=== PATIENT | male | born 1980 | race Hispanic/Latino ===

== ENCOUNTER 2017-06-26 02:46 | Inpatient (IN) | payer BC ==
[2017-06-26 03:11] VITALS: BMI 33.0
--- NOTE | 2017-06-26 03:21 | ED PDOC ---
Arrival/HPI - General Chief Complaint: Fever Time Seen by Provider: 06/26/17 03:15 Historian: Patient - History of Present Illness Narrative History of Present Illness (Text): 06/26/17 03:19 Praful Frazier is a 36 year old male who presents to the Emergency department complaining of flu-like symptoms since yesterday. Patient states after returning home from the gym yesterday he began experiencing generalized weakness , body aches, occasional cough, and dizziness. Patient states tonight he developed a fever with a max temperature of 103.5F at home. Patient reports he took Dayquil and Mucinex with minimal relief. Patient denies any chest pain, shortness of breath, nausea, vomiting, diarrhea, neck pain, headache, dizziness , or any other complaints. Time/Duration: Other (yesterday) Symptom Onset: Gradual Symptom Course: Unchanged Activities at Onset: Light Context: Home Past Medical History - Provider Review Nursing Documentation Reviewed: Yes - Infectious Disease Hx of Infectious Diseases: None - Past Medical History Past Medical History: No Previous - Psychiatric Hx Depression: No Hx Emotional Abuse: No Hx Physical Abuse: No Hx Substance Use: No - Past Surgical History Past Surgical History: No Previous - Anesthesia Hx Anesthesia: No Hx Anesthesia Reactions: No Hx Malignant Hyperthermia: No - Suicidal Assessment Feels Threatened In Home Enviroment: No Family/Social History - Physician Review Nursing Documentation Reviewed: Yes Family/Social History: Unknown Family HX Smoking Status: Never Smoked Hx Alcohol Use: No Hx Substance Use: No Allergies/Home Meds Allergies/Adverse Reactions: Allergies No Known Allergies Allergy (Verified 06/26/17 03:10) Home Medications: Home Meds Medication Instructions Recorded Confirmed Esomeprazole Magnesium [Nexium 20 mg PO DAILY 06/06/14 06/06/14 24Hr] Review of Systems - Physician Review All systems were reviewed & negative as marked: Yes - Review of Systems Constitutional: Fevers, Other (+generalized weakness) Eyes: Normal ENT: Normal Respiratory: Cough Cardiovascular: Normal. absent: Chest Pain Gastrointestinal: Normal. absent: Abdominal Pain, Diarrhea, Nausea, Vomiting Genitourinary Male: Normal. absent: Dysuria, Frequency, Hematuria Musculoskeletal: Other (+body aches). absent: Back Pain, Neck Pain Skin: Normal. absent: Rash Neurological: Dizziness. absent: Headache Endocrine: Normal Hemo/Lymphatic: Normal Psychiatric: Normal Physical Exam Vital Signs Reviewed: Yes Vital Signs Temp Pulse Resp BP Pulse Ox 06/26/17 03:21 100.9 F H 149 H 20 146/106 H 94 L 06/26/17 03:18 100.9 F H 138 H 18 151/101 H 96 Temperature: Febrile Blood Pressure: Hypertensive Pulse: Tachycardic Respiratory Rate: Normal Appearance: Positive for: Well-Appearing, Non-Toxic, Comfortable Pain Distress: None Mental Status: Positive for: Alert and Oriented X 3 - Systems Exam Head: Present: Atraumatic, Normocephalic Pupils: Present: PERRL Extroacular Muscles: Present: EOMI Conjunctiva: Present: Normal Ears: Present: Normal, NORMAL TM, Normal Canal. No: Erythema, TM Bulging, Fluid Mouth: Present: Moist Mucous Membranes Pharnyx: Present: ERYTHEMA (Minimla erythema to pharynx). No: EXUDATE, TONSILS ENLARGED, Peritonsilar Swelling, Uvular Deviation, Muffled/Hoarse Voice, Strider , Soft Palate/Uvular Edema Nose (External): Present: Atraumatic Nose (Internal): Present: Normal Inspection Neck: Present: Normal Range of Motion. No: Meningeal Signs, MIDLINE TENDERNESS , Paraspinal Tenderness Respiratory/Chest: Present: Clear to Auscultation, Good Air Exchange. No: Respiratory Distress, Accessory Muscle Use Cardiovascular: Present: Normal S1, S2, Tachycardic. No: Murmurs Abdomen: Present: Normal Bowel Sounds. No: Tenderness, Distention, Peritoneal Signs Back: Present: Normal Inspection. No: CVA Tenderness, Midline Tenderness, Paraspinal Tenderness Upper Extremity: Present: Normal Inspection. No: Cyanosis, Edema Lower Extremity: Present: Normal Inspection. No: Edema Neurological: Present: GCS=15, CN II-XII Intact, Speech Normal, Motor Func Grossly Intact, Normal Sensory Function, Normal Cerebellar Funct Skin: Present: Warm, Dry, Normal Color. No: Rashes Psychiatric: Present: Alert, Oriented x 3, Normal Insight, Normal Concentration Medical Decision Making ED Course and Treatment: 06/26/17 03:19 Impression: 36 year old male complaining of flu-like symptoms, generalized weakness, body aches, dizziness, and cough since yesterday. Plan: -- EKG -- CXR -- Rapid influenza -- Labs, cardiac enzymes, VBG -- IV fluids -- Motrin -- Reassess and disposition Progress Notes: reviewed EKG, sinus tachycardia at [address]/T wave changes. 06/26/17 04:17 CXR reviewed, shows no acute processes. 06/26/17 05:[address] Pastor, who is aware and agrees with plan. Accepts pt in to his service. Pt will be admitted to telemetry for rhabdomyolysis, fever, and tachycardia. resident hall director paged. 06/26/17 05:45 Case discussed with medical dosimetrist television equipment operator, who is aware and agrees with plan. - Lab Interpretations Lab Results: 06/26/17 03:30 06/26/17 03:30 Lab Results 06/26/17 04:30: Urine Color Yellow, Urine Appearance Clear, Urine pH 7.0, Ur Specific Sweet <= 1.005, Urine Protein Negative, Urine Glucose (UA) Negative, Urine Ketones Negative, Urine Blood Negative, Urine Nitrate Negative, Urine Bilirubin Negative, Urine Urobilinogen 0.2, Ur Leukocyte Esterase Negative 06/26/17 03:43: Influenza Typ A,B (EIA) Negative for flu a/b 06/26/17 03:30: pO2 72 H, VBG pH 7.38, VBG pCO2 43.0, VBG HCO3 25.4, VBG Total CO2 26.7, VBG O2 Sat (Calc) 96.8 H, VBG Base Excess 0.0, VBG Potassium 4.7, Sodium 136.0, Chloride 103.0, Glucose 130 H, Lactate 1.4, FiO2 21.0, Venous Blood Potassium 4.7 06/26/17 03:30: WBC 5.1, RBC 5.65, Hgb 17.3, Hct 49.7, MCV 88.0, MCH 30.6, MCHC 34.8, RDW 13.6, Plt Count 123, MPV 11.3 H 06/26/17 03:30: Sodium 142, Chloride 104, Potassium 4.4, Carbon Dioxide 25, Anion Gap 18, BUN 13, Creatinine 1.0, Est GFR ( Amer) > 60, Est GFR (Non- Af Amer) > 60, Random Glucose 125 H, Calcium 9.8, Total Bilirubin 0.5, AST 97 H , ALT 111 H, Alkaline Phosphatase 47, Lactate Dehydrogenase 689, Total Creatine Kinase 2281 H, CK-MB (CK-2) 3.0, CK-MB (CK-2) % Cancelled, Troponin I 0.04, Total Protein 7.3, Albumin 4.2, Globulin 3.1, Albumin/Globulin Ratio 1.3 06/26/17 03:30: PT 12.6 H, INR 1.10 H, APTT 33.6 I have reviewed the lab results: Yes - RAD Interpretation Radiology Orders: 06/26/17 03:23 CHEST PORTABLE [RAD] Stat Hogshead Hand: ED Physician - EKG Interpretation Interpreted by ED Physician: Yes Type: 12 lead EKG - Medication Orders Current Medication Orders: Sodium Chloride (Sodium Chloride 0.9%) 1,000 mls @ 999 mls/hr IV .Q1H1M STA Stop: 06/26/17 06:45 Discontinued Medications Sodium Chloride (Sodium Chloride 0.9%) 1,000 mls @ 999 mls/hr IV .Q1H1M STA Stop: 06/26/17 04:25 Last Admin: 06/26/17 03:52 Dose: 999 mls/hr eMAR Start Stop Document 06/26/17 03:52 SS (Rec: 06/26/17 03:53 SS [id number]) Intravenous Solution Start Date 06/26/17 Start Time 03:53 End Date 06/26/17 End time 04:53 Total Infusion Time 60 Sodium Chloride (Sodium Chloride 0.9%) 1,000 mls @ 999 mls/hr IV .Q1H1M STA Stop: 06/26/17 05:28 Last Admin: 06/26/17 05:32 Dose: 999 mls/hr eMAR Start Stop Document 06/26/17 05:32 SS (Rec: 06/26/17 05:32 SS [id number]) Intravenous Solution Start Date 06/26/17 Start Time 05:32 End Date 06/26/17 End time 06:32 Total Infusion Time 60 Ibuprofen (Motrin Tab) 800 mg PO STAT STA Stop: 06/26/17 03:28 Last Admin: 06/26/17 03:52 Dose: 800 mg Metoprolol Tartrate (Lopressor) 5 mg IVP STAT STA Stop: 06/26/17 05:47 Oseltamivir Phosphate (Tamiflu Cap) 75 mg PO ONCE ONE PRN Reason: Protocol Stop: 06/26/17 05:38 - Scribe Statement The provider has reviewed the documentation as recorded by the Scribe Karlee Aguilera All medical record entries made by the Scribe were at my direction and personally dictated by me. I have reviewed the chart and agree that the record accurately reflects my personal performance of the history, physical exam, medical decision making, and the department course for this patient. I have also personally directed, reviewed, and agree with the discharge instructions and disposition. Disposition/Present on Arrival - Present on Arrival Any Indicators Present on Arrival: No History of DVT/PE: No History of Uncontrolled Diabetes: No Urinary Catheter: No History of Decub. Ulcer: No History Surgical Site Infection Following: None - Disposition Have Diagnosis and Disposition been Completed?: Yes Diagnosis: Rhabdomyolysis, SIRS (systemic inflammatory response syndrome), Tachycardia Disposition: HOSPITALIZED Disposition Time: 05:51 Patient Plan: Admission Patient Problems: Current Active Problems Problem Status Onset Rhabdomyolysis Acute SIRS (systemic inflammatory response syndrome) Acute Tachycardia Acute Condition: STABLE Forms: [employer] (Jamaican)
[2017-06-26] MEDS ORDERED: Sodium Chloride 0.9% 1,000 ML IV STA ×3 (03:25→05:45)
[2017-06-26 03:50] LABS: VENOUS BLOOD GAS PO2 72 mm/Hg (30-55); VENOUS BLOOD PH 7.38 (7.32-7.43)
[2017-06-26 03:54] LABS: HEMOGLOBIN 17.3 g/dL (14.0-18.0); MEAN CORPUSCULAR HEMOGLOBIN 30.6 pg (25.0-35.0); MEAN CORPUSCULAR HGB CONC 34.8 g/dl (31.0-37.0); MEAN PLATELET VOLUME 11.3 fl (7.0-11.0); RBC 5.65 10^6/uL (3.5-6.1); RED CELL DISTRIBUTION WIDTH 13.6 % (11.5-14.5); WHITE BLOOD COUNT 5.1 10^3/ul (4.5-11.0)
[2017-06-26 04:00] LABS: ALB/GLOB RATIO 1.3 (1.1-1.8); ALBUMIN 4.2 g/dL (3.0-4.8); ALT/SGPT 111 U/L (7-56); AST/SGOT 97 U/L (17-59); BLOOD UREA NITROGEN 13 mg/dL (7-21); CALCIUM 9.8 mg/dL (8.4-10.5); GFR AFRICAN-AMERICAN > 60; GFR NON-AFRICAN AMERICAN > 60
[2017-06-26 04:10] LABS: PROTHROMBIN TIME 12.6 SECONDS (9.4-12.5)
[2017-06-26 04:11] LABS: INR 1.1 (0.93-1.08); PARTIAL THROMBOPLASTIN TIME 33.6 Seconds (25.1-36.5)
[2017-06-26 04:12] LABS: TROPONIN I 0.04 ng/mL
[2017-06-26 05:11] LABS: URINE BILIRUBIN NEGATIVE (NEGATIVE); URINE BLOOD NEGATIVE (NEGATIVE); URINE GLUCOSE (UA) NEGATIVE (NEGATIVE); URINE LEUKOCYTE ESTERASE NEGATIVE Leu/uL (NEGATIVE); URINE NITRATE NEGATIVE (NEGATIVE); URINE PROTEIN NEGATIVE mg/dL (<30 mg/dL); URINE UROBILINOGEN 0.2 E.U./dL (<1 E.U./dL)
[2017-06-26 05:14] LABS: URINE APPEARANCE CLEAR (CLEAR); URINE COLOR YELLOW (YELLOW)
[2017-06-26] MEDS ORDERED: Metoprolol 1 mg/ml Inj IVP STA (05:46)
--- NOTE | 2017-06-26 06:17 | CP.PCM.HP ---
<Josh Landeros - Last Filed: 06/26/17 06:06> History of Present Illness - History of Present Illness History of Present Illness: 36 year old male with past medical history of GERD presents to the hospital for 1 day history of flu-like symptoms. Patient states he woke up yesterday morning with body aches, runny nose, and fever of 103F. Patient states he tried to work through it and went to the gym. Throughout the day, his body aches became worse and decided to come to the hospital. Patient is accompanied by girlfriend at bedside. Patient states he takes a variety of supplements for the gym. Patient does also mention he had phlebotomy done last month for an increased blood count. Denies chest pain, shortness of breath, nausea, vomiting, diarrhea, fever , chills, dysuria, syncope, palpitations. PSH: GERD Surgical Hx: None Family Hx: Noncontributory Social Hx: Denies alcohol, tobacco, or illicit drug use Medications: Omeprazole Allergies: NKDA Present on Admission - Present on Admission Any Indicators Present on Admission: No Review of Systems - Review of Systems Review of Systems: 12 point ROS as per HPI, otherwise negative Past Patient History - Infectious Disease Hx of Infectious Diseases: None - Past Social History Smoking Status: Never Smoked - PSYCHIATRIC Hx Depression: No Hx Emotional Abuse: No Hx Physical Abuse: No Hx Substance Use: No - ANESTHESIA Hx Anesthesia: No Hx Anesthesia Reactions: No Hx Malignant Hyperthermia: No Meds Allergies/Adverse Reactions: Allergies Allergy/AdvReac Type Severity Reaction Status Date / Time No Known Allergies Allergy Verified 06/26/17 12:20 Physical Exam - Constitutional Appears: Non-toxic, No Acute Distress - Head Exam Head Exam: ATRAUMATIC, NORMAL INSPECTION, NORMOCEPHALIC - Eye Exam Eye Exam: EOMI, Normal appearance - ENT Exam ENT Exam: Mucous Membranes Moist, Normal Exam - Respiratory Exam Respiratory Exam: Clear to Auscultation Bilateral, NORMAL BREATHING PATTERN. absent: Rales, Rhonchi, Wheezes - Cardiovascular Exam Cardiovascular Exam: RRR, +S1, +S2 - GI/Abdominal Exam GI & Abdominal Exam: Normal Bowel Sounds, Soft. absent: Tenderness - Extremities Exam Extremities exam: Positive for: normal inspection, tenderness (Diffuse myalgias ). Negative for: calf tenderness, pedal edema - Neurological Exam Neurological exam: Alert, CN II-XII Intact, Oriented x3 - Psychiatric Exam Psychiatric exam: Normal Affect, Normal Mood - Skin Skin Exam: Intact, Normal Color, Warm Results - Vital Signs Recent Vital Signs: Last Vital Signs Temp 100.9 F H 06/26/17 03:21 Pulse 110 H 06/26/17 06:01 Resp 20 06/26/17 03:21 BP 161/92 H 06/26/17 06:01 Pulse Ox 94 L 06/26/17 03:21 - Labs Result Diagrams: 06/26/17 03:30 06/26/17 03:30 Labs: Laboratory Results - last 24 hr 06/26/17 06/26/17 06/26/17 03:30 03:30 03:30 WBC 5.1 RBC 5.65 Hgb 17.3 Hct 49.7 MCV 88.0 MCH 30.6 MCHC 34.8 RDW 13.6 Plt Count 123 MPV 11.3 H PT 12.6 H INR 1.10 H APTT 33.6 pO2 VBG pH VBG pCO2 VBG HCO3 VBG Total CO2 VBG O2 Sat (Calc) VBG Base Excess VBG Potassium Sodium 142 Chloride 104 Glucose Lactate FiO2 Potassium 4.4 Carbon Dioxide 25 Anion Gap 18 BUN 13 Creatinine 1.0 Est GFR ( Amer) > 60 Est GFR (Non-Af Amer) > 60 Random Glucose 125 H Calcium 9.8 Total Bilirubin 0.5 AST 97 H ALT 111 H Alkaline Phosphatase 47 Lactate Dehydrogenase 689 Total Creatine Kinase 2281 H CK-MB (CK-2) 3.0 CK-MB (CK-2) % Cancelled Troponin I 0.04 Total Protein 7.3 Albumin 4.2 Globulin 3.1 Albumin/Globulin Ratio 1.3 Venous Blood Potassium Urine Color Urine Appearance Urine pH Ur Specific Asher Urine Protein Urine Glucose (UA) Urine Ketones Urine Blood Urine Nitrate Urine Bilirubin Urine Urobilinogen Ur Leukocyte Esterase Influenza Typ A,B (EIA) 06/26/17 06/26/17 06/26/17 03:30 03:43 04:30 WBC RBC Hgb Hct MCV MCH MCHC RDW Plt Count MPV PT INR APTT pO2 72 H VBG pH 7.38 VBG pCO2 43.0 VBG HCO3 25.4 VBG Total CO2 26.7 VBG O2 Sat (Calc) 96.8 H VBG Base Excess 0.0 VBG Potassium 4.7 Sodium 136.0 Chloride 103.0 Glucose 130 H Lactate 1.4 FiO2 21.0 Potassium Carbon Dioxide Anion Gap BUN Creatinine Est GFR ( Amer) Est GFR (Non-Af Amer) Random Glucose Calcium Total Bilirubin AST ALT Alkaline Phosphatase Lactate Dehydrogenase Total Creatine Kinase CK-MB (CK-2) CK-MB (CK-2) % Troponin I Total Protein Albumin Globulin Albumin/Globulin Ratio Venous Blood Potassium 4.7 Urine Color Yellow Urine Appearance Clear Urine pH 7.0 Ur Specific Asher <= 1.005 Urine Protein Negative Urine Glucose (UA) Negative Urine Ketones Negative Urine Blood Negative Urine Nitrate Negative Urine Bilirubin Negative Urine Urobilinogen 0.2 Ur Leukocyte Esterase Negative Influenza Typ A,B (EIA) Negative for flu a/b Assessment & Plan - Assessment and Plan (Free Text) Plan: 36 year old male with past medical history of GERD presents with rhabdomyolysis. 1. Rhabdomyolysis NS @ 250 Hepatitis panel Echocardiogram Cardio consult, Dr. Thorpe Drug screen HIV Troponin q6h CPK q6h CT abdomen, pelvis, chest 2. GERD Protonix 3. Prophylaxis Heparin Cruz Landeros, PGY-2 <Papa Pastor U - Last Filed: 06/30/17 13:38> Results - Vital Signs Recent Vital Signs: Last Vital Signs Temp 97.6 F 06/30/17 06:00 Pulse 85 06/30/17 10:00 Resp 20 06/30/17 06:00 BP 131/80 06/30/17 06:00 Pulse Ox 98 06/30/17 06:00 - Labs Result Diagrams: 06/30/17 05:30 06/30/17 05:30 Labs: Laboratory Results - last 24 hr 06/28/17 06/29/17 06/30/17 07:00 06:30 05:30 WBC RBC Hgb Hct MCV MCH MCHC RDW Plt Count Manual Plt Count MPV Gran % Lymph % (Auto) Waldo % (Auto) Eos % (Auto) Baso % (Auto) Gran # Lymph # (Auto) Waldo # (Auto) Eos # (Auto) Baso # (Auto) Sodium 143 Potassium 4.4 Chloride 104 Carbon Dioxide 28 Anion Gap 16 BUN 15 Creatinine 0.9 Est GFR ( Amer) > 60 Est GFR (Non-Af Amer) > 60 Random Glucose 93 Calcium 9.6 Magnesium 1.8 Total Bilirubin 0.9 Direct Bilirubin 0.3 AST 65 H ALT 112 H Alkaline Phosphatase 48 Total Creatine Kinase 364 H CK-MB (CK-2) 1.3 CK-MB (CK-2) % Cancelled Troponin I 0.02 Total Protein 7.0 Albumin 4.0 Globulin 3.0 Albumin/Globulin Ratio 1.3 CMV IgG Ab <0.60 CMV IgM Ab <30.00 EBV Capsid Ag IgG Ab >750.00 H EBV Capsid Ag IgM Ab <36.00 EBV Nuclear Antigen Ab 457.00 H EBV Interpretation See note 06/30/17 05:30 WBC 3.6 L RBC 5.63 Hgb 17.2 Hct 49.3 MCV 87.6 MCH 30.6 MCHC 34.9 RDW 13.2 Plt Count 134 Manual Plt Count 202 MPV 11.4 H Gran % 41.0 L Lymph % (Auto) 40.1 H Waldo % (Auto) 11.8 H Eos % (Auto) 7.1 H Baso % (Auto) 0.0 Gran # 1.49 Lymph # (Auto) 1.5 Waldo # (Auto) 0.4 Eos # (Auto) 0.3 Baso # (Auto) 0.00 Sodium Potassium Chloride Carbon Dioxide Anion Gap BUN Creatinine Est GFR ( Amer) Est GFR (Non-Af Amer) Random Glucose Calcium Magnesium Total Bilirubin Direct Bilirubin AST ALT Alkaline Phosphatase Total Creatine Kinase CK-MB (CK-2) CK-MB (CK-2) % Troponin I Total Protein Albumin Globulin Albumin/Globulin Ratio CMV IgG Ab CMV IgM Ab EBV Capsid Ag IgG Ab EBV Capsid Ag IgM Ab EBV Nuclear Antigen Ab EBV Interpretation Attending/Attestation - Attestation I have personally seen and examined this patient.: Yes I have fully participated in the care of the patient.: Yes I have reviewed all pertinent clinical information: Yes Notes (Text): Please see/read my dictated notes.
[2017-06-26] MEDS ORDERED: Iohexol 240 (50 ml) ONE (06:37)
[2017-06-26 07:07] LABS: BARBITURATES, UR NEGATIVE (NEGATIVE); BENZODIAZEPINES, UR NEGATIVE (NEGATIVE); OPIATES, UR NEGATIVE (NEGATIVE); PHENCYCLIDINE, UR NEGATIVE (NEGATIVE)
[2017-06-26] MEDS ORDERED: Iohexol 350 MG/100 ML VIAL ONE (07:24)
[2017-06-26] MEDS: Sodium Chloride 0.9% 1,000 ML IV SCH (09:23)
--- NOTE | 2017-06-26 09:47 | RAD ---
HISTORY: fever/cough COMPARISON: No prior. FINDINGS: LUNGS: No active pulmonary disease. PLEURA: No significant pleural effusion identified, no pneumothorax apparent. CARDIOVASCULAR: Normal. OSSEOUS STRUCTURES: No significant abnormalities. VISUALIZED UPPER ABDOMEN: Normal. OTHER FINDINGS: None. IMPRESSION: No active disease.
--- NOTE | 2017-06-26 09:54 | CT ---
PROCEDURE: CT Chest, Abdomen and Pelvis with intravenous contrast HISTORY: Increased LFTs COMPARISON: None. TECHNIQUE: IV dose administered: 100 cc of Optiray 300 Radiation dose: Total exam DLP = 1543 mGy-cm. This CT exam was performed using one or more of the following dose reduction techniques: Automated exposure control, adjustment of the mA and/or kV according to patient size, and/or use of iterative reconstruction technique. FINDINGS: CT CHEST WITH CONTRAST: LUNGS: Clear. No nodule, mass or consolidation. MEDIASTINUM: Unremarkable. Normal caliber aorta and pulmonary arterial trunk. No aortic dissection. Normal size heart. LYMPH NODES: Unremarkable. PLEURA: Unremarkable. No pneumothorax. No pleural fluid. BONES: Unremarkable. OTHER FINDINGS: None. CT ABDOMEN AND PELVIS: LIVER: Unremarkable. No gross lesion or ductal dilatation. GALLBLADDER AND BILE DUCTS: Unremarkable. PANCREAS: Unremarkable. No gross lesion or ductal dilatation. SPLEEN: Unremarkable. ADRENALS: Unremarkable. No mass. KIDNEYS AND URETERS: Unremarkable. No hydronephrosis. No solid mass. VASCULATURE: Unremarkable. No aortic aneurysm. BOWEL: Unremarkable. No obstruction. No gross mural thickening. APPENDIX: Normal appendix. PERITONEUM: Unremarkable. No free fluid. No free air. LYMPH NODES: Unremarkable. No enlarged lymph nodes. BLADDER: Unremarkable. REPRODUCTIVE: Unremarkable. BONES: No acute fracture. OTHER FINDINGS: None. IMPRESSION: Unremarkable exam.
--- NOTE | 2017-06-26 10:26 | US ---
HISTORY: TRANSAMINITIS COMPARISON: None. TECHNIQUE: Sonographic evaluation of the abdomen. FINDINGS: LIVER: Measures cm. Normal echogenicity of the liver parenchyma. No mass. No intrahepatic bile duct dilatation. GALLBLADDER: Unremarkable. No gallstones. COMMON BILE DUCT: Measures mm. No stones. No dilatation. PANCREAS: Unremarkable as visualized. No mass. No ductal dilatation. RIGHT KIDNEY: Measures cm. Normal echogenicity. No calculus, mass, or hydronephrosis. LEFT KIDNEY: Measures cm. Normal echogenicity. No calculus, mass, or hydronephrosis. SPLEEN: Normal in size and contour. No mass. AORTA: No aneurysmal dilatation. IVC: Unremarkable. OTHER FINDINGS: None. IMPRESSION: Unremarkable abdominal sonogram.
[2017-06-26 11:04] LABS: TROPONIN I 0.03 ng/mL
[2017-06-26 11:10] LABS: FREE T4 0.56 ng/dL (0.78-2.19); T4 4.5 ug/dL (5.5-11.0)
[2017-06-26 12:02] LABS: CK-MB 2.6 ng/mL (0.0-3.6)
[2017-06-26 17:05] LABS: HEPATITIS B SURFACE AG Negative (NEGATIVE)
[2017-06-26 17:10] LABS: HEPATITIS A IGM NEGATIVE (NEGATIVE); HEPATITIS B CORE AB NEGATIVE (NEGATIVE)
[2017-06-26 17:22] LABS: HEPATITIS C ANTIBODY NEGATIVE (NEGATIVE)
[2017-06-26] MEDS ORDERED: Pneumococcal 23-Valent Vaccine IM ONE (18:18)
[2017-06-26] MEDS ORDERED: Influenza Vaccine 60 mcg/0.5 mL SYR (4YR UP) IM ONE (18:18)
--- NOTE | 2017-06-26 21:01 | CON ---
DATE: 06/26/2017 INDICATIONS: Fever, tachycardia, abnormal EKG, rhabdomyolysis. HISTORY OF PRESENT ILLNESS: This is a 36-year-old male admitted early his morning with fever, body aches, URI symptoms for a couple of days, tachycardia and abnormal EKG with findings of rhabdomyolysis . Today, he feels better, having received IV fluids. He has no chest pain, orthopnea, PND, syncope, presyncope,lightheadedness, dizziness vertigo, palpitation, edema, claudication, rigor, sweats, hemoptysis, abdominal pain, nausea, vomiting, diarrhea, constipation or melena. PAST MEDICAL HISTORY: Benign. There is no history of myocardial infarction, rheumatic fever, angina, congestive heart failure, arrhythmia, diabetes, stroke, TIA, hypertension, hyperlipidemia, gout. There has been no hospitalizations. No prior surgeries. He said he had a recent physical exam with lab studies and EKG, which were unremarkable through his primary care physician. MEDICATIONS: At the time of admission were Naprosyn p.r.n and Nexium. His current medications include aspirin, subcutaneous heparin, metoprolol, ibuprofen, Protonix, Tamiflu, Tylenol. ALLERGIES: THERE ARE NO KNOWN MEDICATION ALLERGIES. SOCIAL HISTORY: He lives at home. 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 He does not smoke cigarettes, does not drink alcohol significantly. FAMILY HISTORY: Noncontributory. His father has valvular heart disease. No history of early myocardial infarction. REVIEW OF SYSTEMS: [id number] review of systems otherwise unremarkable except as noted above. PHYSICAL EXAMINATION: GENERAL: He is a well-developed male, lying on a stretcher in the emergency room in no acute distress. VITAL SIGNS: Sinus tachycardia at 110 beats per minute. He is afebrile currently. Last blood pressure 158/105, respirations 18, O2 sat 97% on room air. HEENT: Reveals no neck vein distention, thyromegaly, carotid bruits. Mucous membrane is moist. Conjunctive pick. NECK: Supple. LUNGS: Lung beard clear throughout. HEART: Revels normal first and second heart sounds. No murmur, gallop, rub or click. PMI is not palpable. ABDOMEN: Soft. Bowel sounds present. No mass, organomegaly, tenderness, rebound, guarding, CVA tenderness or palpable abdominal aortic aneurysm. EXTREMITIES: Reveals no cyanosis, clubbing or edema. NEUROLOGIC: He is awake, alert and oriented. PSYCHIATRIC: Normal as to mood and affect. SKIN: Warm and dry. No rashes or cellulitis. LABORATORY AND IMAGING: Chest x-ray is not interpreted yet. Lung beard are clear by my interpretation. EKG demonstrates sinus tachycardia at 149 beats per minute. There is LVH by voltage. There are ST-T wave changes consistent with left ventricular hypertrophy and ischemia. No prior EKG for comparison. Chest, abdominal and pelvis CT scan and abdominal ultrasounds are ordered. CBC is unremarkable. PT/INR and PTT unremarkable. Blood gases are noted. Chemistry is unremarkable. Blood sugar 125. Mild elevation of AST and ALT, which were 97 and 111 respectively. Alkaline phosphatase is normal. LDH is normal. Total CK 2281. Troponin 0.04. Urinalysis is unremarkable. Toxic screen is unremarkable. Influenza A and B are negative. ASSESSMENT: Praful Frazier is a 36-year-old man with apparent viral like syndrome, who developed body aches after working out, with fever and evidence of rhabdomyolysis, sinus tachycardia, abnormal EKG with left ventricular hypertrophy with ST-T wave changes with no prior EKG for comparison. He received IV fluids, he feels much better this morning. His fever has subsided. At this time, I agree with current plans. I will repeat an EKG and get serial troponins. I will order echocardiogram. He is getting aspirin, heparin, metoprolol, Protonix, IV fluids, Tylenol as needed. We will monitor inputs and outputs, check stool for occult blood. He can be out of bed to a chair and remote tele bed is appropriate. I will follow along with you. I will make additional recommendations based on his clinical course. Rush Krishnan MD MTDD
--- NOTE | 2017-06-26 21:42 | CARD ---
APPROVED REPORT EKG Measurement Heart [id number] <Conclusion> Sinus tachycardia Voltage criteria for left ventricular hypertrophy ST & T wave abnormality, consider lateral ischemia Abnormal ECG
[2017-06-27] MEDS: Sodium Chloride 0.9% 1,000 ML IV SCH ×6 (00:28→23:30)
[2017-06-27] MEDS ORDERED: Iodixanol 320 MG/ML 100 ML BOTTLE IV ONE (01:39)
[2017-06-27] MEDS: Pantoprazole 40 mg EC Tab PO SCH (06:00)
[2017-06-27 06:51] LABS: HEMOGLOBIN 16.2 g/dL (14.0-18.0); MEAN CELL VOLUME 88.5 fl (80.0-105.0); MEAN CORPUSCULAR HEMOGLOBIN 30.2 pg (25.0-35.0); MEAN CORPUSCULAR HGB CONC 34.1 g/dl (31.0-37.0); MEAN PLATELET VOLUME 11.3 fl (7.0-11.0); RBC 5.37 10^6/uL (3.5-6.1); RED CELL DISTRIBUTION WIDTH 13.7 % (11.5-14.5); WHITE BLOOD COUNT 3.4 10^3/ul (4.5-11.0)
[2017-06-27 07:16] LABS: ALB/GLOB RATIO 1.4 (1.1-1.8); ALBUMIN 3.8 g/dL (3.0-4.8); ALT/SGPT 120 U/L (7-56); AST/SGOT 117 U/L (17-59); BILIRUBIN,DIRECT 0.4 mg/dL (0.0-0.4); BLOOD UREA NITROGEN 13 mg/dL (7-21); CALCIUM 9.2 mg/dL (8.4-10.5); GFR AFRICAN-AMERICAN > 60; GFR NON-AFRICAN AMERICAN > 60; MAGNESIUM 1.8 mg/dL (1.7-2.2)
--- NOTE | 2017-06-27 07:59 | HP ---
ADDENDUM The patient was seen and examined in the emergency room stretcher #[id number]. The patient's sister who is a nurse at [facility] is at bedside. The patient's vital signs, diagnostic data, imaging studies, cardiovascular studies reviewed. The patient's chief complaint reviewed. The patient examined at the bedside. For further details of the patient's medical history and history and physical examination, please refer to the history of physical examination done by the medical technologist prn and the ER physician evaluation. IMPRESSION AND PLAN 1. High-grade fever of 103. 2. Dizziness. 3. Severe myalgias. 4. Resting tachycardia. 5. Uncontrolled hypertension. 6. Morbid obesity with elevated body mass index of 33. 7. Multiple skin tattoos. 8. History of phlebotomy and erythrocytosis. 9. Hyperglycemia. 10. Transaminitis. 11. Severe symptomatic rhabdomyolysis with symptoms of myalgia and elevated CPK. 12. Indeterminate troponin. 13. Hypercholesterolemia with elevated LDL and decreased HDL. 14. History of erythrocytosis. 15. History of gastroesophageal reflux. 16. History of endoscopy. 17. History of protein supplement use. 18. Sinus tachycardia with left ventricular hypertrophy and questionable lateral ischemic changes. 19. Status post phlebotomy x2. 20. Questionable left axis deviation. 21. Questionable lateral coronary ischemic changes on the EKG. 22. Questionable rate related ischemic changes. PLAN: At this time, the patient will be admitted to telemetry. Serial labs ordered. Serial CPK, LFTs, magnesium, troponin ordered. Repeat CBC ordered. Hepatitis A and HIV serologies ordered because of history of multiple skin tattooing. The patient is started on aspirin 81 daily, heparin 5000 international units subcu q. 12, Lopressor 25 mg q. 12, Protonix 40 mg daily. The patient is on IV fluid 250 mL an hour normal saline. The patient is on Tamiflu 750 mg twice a day. The patient's influenza serologies ordered. The patient has been ordered Zofran 4 mg IV q. 4 p.r.n., Tylenol 650 mg q. 4h. p.r.n. for temperature greater than or equal to 99.5. The patient has been ordered out of bed, SCDs, CHRISTOPH stockings.. The patient will be ordered d-dimer. The patient has been ordered heart-healthy diet. The patient's condition, diagnosis, management treatment plan, all extensively discussed with the patient and the patient's sister who is a nurse in [facility]. The patient was counseled about cessation of protein supplement use. The patient was explained about the risks and consequences of above, which he acknowledged to understand. Please refer to the detailed history and physical examination by the medical technologist prn done on this patient. Dictated and electronically signed, not read. Papa Pastor MD
[2017-06-27 08:05] LABS: TROPONIN I 0.03 ng/mL
--- NOTE | 2017-06-27 08:37 | CT ---
PROCEDURE: CT Chest with contrast (Pulmonary Angiogram) HISTORY: r/o PE, elevated D-Dimer. COMPARISON: None available. TECHNIQUE: Axial computed tomography images were obtained of the chest in the pulmonary arterial phase of enhancement. Coronal and sagittal reformatted images were created and reviewed. Intravenous contrast dose: Visipaque 320, 96 cc Radiation dose: Total exam DLP = 533.47 mGy-cm. This CT exam was performed using one or more of the following dose reduction techniques: Automated exposure control, adjustment of the mA and/or kV according to patient size, and/or use of iterative reconstruction technique. FINDINGS: PULMONARY ARTERIES: Unremarkable. No definite pulmonary embolism identified. Small pulmonary right branches are limited in evaluation. AORTA: No acute findings. No thoracic aortic aneurysm. LUNGS: Limited linear atelectasis seen at the inferior left base. No alveolitis bilaterally and the central airways appear clear. Note is made of a small, solid noncalcified nodular density in under 1 cm size in the left lower lobe in image 93 series 4 better seen in prior chest CT 01/23/2018 measuring 6 mm without obvious calcification. No additional pulmonary nodule is otherwise seen bilaterally. PLEURAL SPACES: Unremarkable. No effusion or pneuomothorax. HEART: Unremarkable. No cardiomegaly. No significant pericardial effusion. LYMPH NODES: No lymphadenopathy. BONES, CHEST WALL: Unremarkable. No fracture or destructive lesion OTHER FINDINGS: Unremarkable. IMPRESSION: No CT evidence to suggest pulmonary embolus at this time. No infiltrate pleural or pericardial effusion identified. A 6 mm pulmonary nodule is seen at the left lower lobe for which follow-up low-dose chest CT is advised in 6 months to demonstrate stability of this finding.
[2017-06-27 09:23] LABS: CK-MB 2.6 ng/mL (0.0-3.6)
--- NOTE | 2017-06-27 11:33 | CARD ---
APPROVED REPORT EXAM: Two-dimensional and M-mode echocardiogram with Doppler and color Doppler. Other Information Quality : FairRhythm : INDICATION Fever, Tachycardia, Rhabdo. 2D DIMENSIONS IVSd1.6 (0.7-1.1cm)LVDd5.9 (3.9-5.9cm) PWd1.6 (0.7-1.1cm)LVDs4.7 (2.5-4.0cm) FS (%) 19.9 %LVEF (%)40.0 (>50%) M-Mode DIMENSIONS Left Atrium (MM)3.90 (2.5-4.0cm)IVSd1.65 (0.7-1.1cm) Aortic Root4.50 (2.2-3.7cm)LVDd5.96 (4.0-5.6cm) Aortic Cusp Exc.2.90 (1.5-2.0cm)PWd1.99 (0.7-1.1cm) FS (%) 18 %LVDs4.89 (2.0-3.8cm) LVEF (%)37 (>50%) Aortic Valve AoV Peak Heoxtamp183.0cm/s Mitral Valve MV E Aesmmiml99.5cm/sMV A Mwrzykvv30.8cm/sE/A ratio1.5 TDI Lateral E' Peak V11.90cm/sMedial E' Peak V10.20cm/sE/Lateral E'6.5 E/Medial E'7.6 Tricuspid Valve TR Peak [id number]/sRAP [id number] Peak Gr.26mmHg [id number] LEFT VENTRICLE The Left Ventricle is borderline dilated. There is mild concentric left ventricular hypertrophy. Left ventricle systolic function is mildly impaired. The Ejection Fraction is - 40%. THere is mild global hypokinesis. RIGHT VENTRICLE The right ventricle is normal size. ATRIA The left atrium size is normal. The right atrium size is normal. The interatrial septum is intact with no evidence for an atrial septal defect. AORTIC VALVE The AV is possibly bicuspid. MITRAL VALVE The mitral valve is normal in structure. Mitral regurgitation is mild. TRICUSPID VALVE The tricuspid valve is normal in structure. There is trace tricuspid regurgitation. PULMONIC VALVE The pulmonary valve is normal in structure. GREAT VESSELS The aortic root is normal in size. PERICARDIAL EFFUSION There is no pericardial effusion. <Conclusion> The Left Ventricle is borderline dilated. There is mild concentric left ventricular hypertrophy. Left ventricle systolic function is mildly impaired. The Ejection Fraction is - 40%. THere is mild global hypokinesis. The AV is possibly bicuspid. Mitral regurgitation is mild. There is trace tricuspid regurgitation.
--- NOTE | 2017-06-27 11:56 | CP.PCM.PN ---
Subjective - Date & Time of Evaluation Date of Evaluation: 06/27/17 Time of Evaluation: 07:00 - Subjective Subjective: Stable on 2R. No CP or SOB. He feels better. V/S noted. RSR PE: Lungs: clear Cor.: S1S2 Abd.: soft Ext.: no edema Neuro.: alert ECG: RSR, markedly improved repolarization abnormality c/w ECG yesterday Echo: Borderline LVE with mild global hypokinesis, EF ~40% Labs noted. CTA Chest noted. No PE. + 6 mm pulm nodule Objective - Vital Signs/Intake and Output Vital Signs (last 24 hours): Temp Pulse Resp BP Pulse Ox 98.4 F 83 16 135/81 99 06/27/17 05:26 06/27/17 10:50 06/27/17 05:26 06/27/17 10:50 06/27/17 05:26 Intake and Output: 06/27/17 06/27/17 06:59 18:59 Intake Total 1200 900 Output Total 500 500 Balance 700 400 - Medications Medications: Current Medications Acetaminophen (Tylenol 325mg Tab) 650 mg PO Q4H PRN PRN Reason: Pain, Mild (1-3) Aspirin (Aspirin Chewable) 81 mg PO DAILY [facility] Last Admin: 06/27/17 10:51 Dose: 81 mg Heparin Sodium (Porcine) (Heparin) 5,000 units SC Q12 AFTAB PRN Reason: Protocol Last Admin: 06/27/17 10:51 Dose: 5,000 units Sodium Chloride (Sodium Chloride 0.9%) 1,000 mls @ 250 mls/hr IV .Q4H [facility] Last Admin: 06/27/17 06:01 Dose: 250 mls/hr Losartan Potassium (Cozaar) 50 mg PO DAILY [facility] Last Admin: 06/27/17 10:50 Dose: 50 mg Metoprolol Tartrate (Lopressor) 25 mg PO Q8H [facility] Last Admin: 06/27/17 06:00 Dose: 25 mg Ondansetron HCl (Zofran Inj) 4 mg IVP Q4H PRN PRN Reason: Nausea/Vomiting Oseltamivir Phosphate (Tamiflu Cap) 75 mg PO BID [facility] PRN Reason: Protocol Stop: 07/01/17 06:38 Last Admin: 06/27/17 10:50 Dose: 75 mg Pantoprazole Sodium (Protonix Ec Tab) 40 mg PO 0600 [facility]FT[facility] Last Admin: 06/27/17 06:00 Dose: 40 mg - Labs Labs: 06/27/17 06:00 06/27/17 06:00 PT 12.6 SECONDS (9.4-12.5) H 06/26/17 03:30 INR 1.10 (0.93-1.08) H 06/26/17 03:30 APTT 33.6 Seconds (25.1-36.5) 06/26/17 03:30 Assessment and Plan - Assessment and Plan (Free Text) Assessment: Dizziness, Fever, myalgias, tachycardia, possible viral syndrome Abn ECG Rhabdomyolysis Abn echo with mild global HK, bicuspid valve Pulm. nodule Abn. LFTs PCV s/p phlebotomies Plan: Nuclear stress test to clarify EF and evaluate for CAD. As per Dr. Pastor and medical team. IVF Monitor labs, I/O
--- NOTE | 2017-06-27 21:51 | PN ---
DATE: 06/27/2017 LOCATION: Patient is seen room 267, bed 2. SUBJECTIVE: Patient is in isolation for high-grade fever with negative influenza.. The patient states that his symptoms of myalgia has subsided, but not completely resolved. OBJECTIVE: VITAL SIGNS: T-max 98.5, 98.4, 99.2, 100.4. T-max was 100.4 yesterday and 100.9, today's T-max is 98.5. Telemetry sinus rhythm, intermittent sinus tachycardia. Blood pressure 136/97, 135/81, 139/98, 154/98; respiration 18; O2 sat 99%. Urine output 1700. HEENT: Head: Normocephalic, atraumatic. [place] conjunctivae. Anicteric sclerae. No oropharyngeal lesion. NECK: Nn neck rigidity. CHEST: Symmetrical. LUNGS: Shows no rales, crackles or wheezing. CARDIOVASCULAR: S1, S2, regular rhythm. ABDOMEN: Soft. Positive bowel sounds. No hepatosplenomegaly noted. No guarding. No rigidity. No rebound tenderness. GENITALIA: Male. RECTAL: Deferred. EXTREMITIES: Shows no pitting edema, no calf tenderness, no Homans sign. NEUROLOGIC: The patient is alert, awake, oriented x3. Cranial nerves II-XII grossly intact. Gait examination is independent. MUSCULOSKELETAL: Shows a body mass index of 33. DIAGNOSTIC DATA: 06/27/2017, WBC 3.4, hemoglobin/hematocrit 16.2 , platelet 114 and 128. D-dimer was elevated at 404. Sodium 142, potassium 4.4, chloride 104, CO2 of 27, anion gap 16, BUN 13, creatinine 0.9, GFR greater than 60, glucose 92, hemoglobin A1c 5.4. AST is 117, ALT 120. CPK is only down to 2625. Peak troponin is 0.04. Hepatitis A, B, C serologies, HIV influenza negative. CT chest shows left basal atelectasis, negative for pulmonary embolism, a 6-mm pulmonary nodule at the left lower lobe. Echocardiogram was done. Ejection fraction with 2-D echo 40%, M-mode is 37%, right ventricular systolic pressure 36 mmHg, mildly dilated left ventricle, concentric left ventricle hypertrophy, mildly impaired left ventricle ejection fraction, global left ventricular hypokinesis with ejection fraction 40%, possible bicuspid aortic valve, mild mitral regurgitation, trace tricuspid regurgitation, mildly impaired left ventricular systolic function. EKG shows sinus rhythm, hypertensive cardiovascular disease and left ventricle hypertrophy. IMPRESSION AND PLAN: 1. Severe symptomatic rhabdomyolysis with elevated CPK. 2. High-grade fever of 103. 3. Resting tachycardia. 4. Hypertension. 5. Obesity with elevated body mass index of 33. 6 Leukopenia, thrombocytopenia. 7. Elevated D-dimer. 8. Transaminitis, etiology undetermined versus secondary to rhabdomyolysis. 9. Elevated LDL and decreased HDL. 10. Left ventricular hypertrophy. 11. Nonspecific ST-T changes. 12. Left ventricular ejection fraction of 37%-40%. 13. Mild concentric left ventricular hypertrophy with borderline dilated left ventricle with mildly impaired left ventricular systolic function. 14. Mild global left ventricular hypokinesis with left ventricle ejection fraction of 40%. 15. Bicuspid aortic valve. 16. Mild mitral regurgitation. 17. Trace tricuspid regurgitation. 18. Left lower lobe atelectasis. 19. Left lower lobe 6-mm pulmonary nodule. 20. Possible viral syndrome. 1. High-grade fever of 103. 2. Dizziness. 3. Severe myalgias. 4. Resting tachycardia. 5. Uncontrolled hypertension. 6. Morbid obesity with elevated body mass index of 33. 7. Multiple skin tattoos. 8. History of phlebotomy and erythrocytosis. 9. Hyperglycemia. 10. Transaminitis. 11. Severe symptomatic rhabdomyolysis with symptoms of myalgia and elevated CPK. 12. Indeterminate troponin. 13. Hypercholesterolemia with elevated LDL and decreased HDL. 14. History of erythrocytosis. 15. History of gastroesophageal reflux. 16. History of endoscopy. 17. History of protein supplement use. 18. Sinus tachycardia with left ventricular hypertrophy and questionable lateral ischemic changes. 19. Status post phlebotomy x2. 20. Questionable left axis deviation. 21. Questionable lateral coronary ischemic changes on the EKG. 22. Questionable rate related ischemic changes. PLAN: At this time, the patient seen by accounts payable representative, scheduled for a stress test in the morning. The patient is to be continued on Tylenol 650 q. 4 p.r.n., aspirin 81 mg daily, heparin 5000 subcu q. 12, Cozaar 50 mg daily, Lopressor 25 mg q. 8 hour, Zofran 4 mg IV q. 4 p.r.n., Tamiflu 75 mg twice a day, Protonix 40 mg daily, IV fluid 0.9 normal saline at 250 mL an hour. The patient is schedule for stress test tomorrow. Also requested GI evaluation for transaminitis. The patient is updated about his condition, diagnosis, test results and recommendation by all the physicians, which he acknowledged and understood. All questions concerned answered. Dictated and electronically signed, not read. Papa Pastor MD MTDD
--- NOTE | 2017-06-28 02:39 | CARD ---
APPROVED REPORT EKG Measurement Heart [id number] <Conclusion> Normal sinus rhythm Minimal voltage criteria for LVH, may be normal variant Nonspecific T wave abnormality Abnormal ECG
[2017-06-28] MEDS: Sodium Chloride 0.9% 1,000 ML IV SCH ×3 (05:01→15:11)
[2017-06-28 06:22] LABS: HEMOGLOBIN 16.7 g/dL (14.0-18.0); MEAN CELL VOLUME 88.7 fl (80.0-105.0); MEAN CORPUSCULAR HEMOGLOBIN 30.4 pg (25.0-35.0); MEAN CORPUSCULAR HGB CONC 34.3 g/dl (31.0-37.0); MEAN PLATELET VOLUME 11.6 fl (7.0-11.0); RBC 5.49 10^6/uL (3.5-6.1); RED CELL DISTRIBUTION WIDTH 13.7 % (11.5-14.5); WHITE BLOOD COUNT 3.2 10^3/ul (4.5-11.0)
[2017-06-28 06:39] LABS: ALB/GLOB RATIO 1.3 (1.1-1.8); ALBUMIN 3.8 g/dL (3.0-4.8); ALT/SGPT 112 U/L (7-56); AST/SGOT 96 U/L (17-59); BILIRUBIN,DIRECT 0.4 mg/dL (0.0-0.4); BLOOD UREA NITROGEN 13 mg/dL (7-21); CALCIUM 9.3 mg/dL (8.4-10.5); GFR AFRICAN-AMERICAN > 60; GFR NON-AFRICAN AMERICAN > 60; MAGNESIUM 1.7 mg/dL (1.7-2.2)
[2017-06-28 06:49] LABS: TROPONIN I 0.02 ng/mL
[2017-06-28] MEDS: Pantoprazole 40 mg EC Tab PO SCH (06:53)
[2017-06-28 08:35] LABS: CK-MB 2.2 ng/mL (0.0-3.6)
--- NOTE | 2017-06-28 13:14 | CP.PCM.PN ---
<Josh Landeros - Last Filed: 06/28/17 13:10> Subjective - Date & Time of Evaluation Date of Evaluation: 06/28/17 Time of Evaluation: 13:10 - Subjective Subjective: Patient seen and examined at bedside. Patient doing well overnight, with no acute events. Patient states myalgias are improving. Patient will have stress test done today. Denies chest pain, shortness of breath, nausea, vomiting, diarrhea, fever, chills. Objective - Vital Signs/Intake and Output Vital Signs (last 24 hours): Temp Pulse Resp BP Pulse Ox 97.9 F 57 L 20 119/46 L 98 06/28/17 06:00 06/28/17 06:00 06/28/17 06:00 06/28/17 06:00 06/28/17 06:00 Intake and Output: 06/28/17 06/28/17 06:59 18:59 Intake Total 2500 Output Total 1200 Balance 1300 - Medications Medications: Current Medications Acetaminophen (Tylenol 325mg Tab) 650 mg PO Q4H PRN PRN Reason: Pain, Mild (1-3) Aspirin (Aspirin Chewable) 81 mg PO DAILY [facility] Last Admin: 06/28/17 09:43 Dose: Not Given Heparin Sodium (Porcine) (Heparin) 5,000 units SC Q12 AFTAB PRN Reason: Protocol Last Admin: 06/28/17 09:43 Dose: Not Given Sodium Chloride (Sodium Chloride 0.9%) 1,000 mls @ 150 mls/hr IV .Q6H40M [facility] Stop: 07/01/17 02:09 Losartan Potassium (Cozaar) 50 mg PO DAILY [facility] Last Admin: 06/28/17 09:43 Dose: Not Given Metoprolol Tartrate (Lopressor) 25 mg PO Q12H [facility] Last Admin: 06/28/17 09:44 Dose: Not Given Ondansetron HCl (Zofran Inj) 4 mg IVP Q4H PRN PRN Reason: Nausea/Vomiting Oseltamivir Phosphate (Tamiflu Cap) 75 mg PO BID [facility] PRN Reason: Protocol Stop: 07/01/17 06:38 Last Admin: 06/27/17 21:09 Dose: 75 mg Pantoprazole Sodium (Protonix Ec Tab) 40 mg PO 0600 [facility] Last Admin: 06/28/17 06:53 Dose: 40 mg - Labs Labs: 06/28/17 05:30 06/28/17 05:30 PT 12.6 SECONDS (9.4-12.5) H 06/26/17 03:30 INR 1.10 (0.93-1.08) H 06/26/17 03:30 APTT 33.6 Seconds (25.1-36.5) 06/26/17 03:30 - Constitutional Appears: Non-toxic, No Acute Distress - Head Exam Head Exam: ATRAUMATIC, NORMAL INSPECTION, NORMOCEPHALIC - ENT Exam ENT Exam: Mucous Membranes Moist - Respiratory Exam Respiratory Exam: Clear to Ausculation Bilateral, NORMAL BREATHING PATTERN - Cardiovascular Exam Cardiovascular Exam: RRR, +S1, +S2 - GI/Abdominal Exam GI & Abdominal Exam: Soft, Normal Bowel Sounds. absent: Tenderness - Extremities Exam Extremities Exam: Normal Inspection. absent: Calf Tenderness, Pedal Edema - Neurological Exam Neurological Exam: Alert, Awake, Oriented x3 - Psychiatric Exam Psychiatric exam: Normal Affect, Normal Mood - Skin Skin Exam: Intact, Normal Color, Warm Assessment and Plan - Assessment and Plan (Free Text) Plan: 36 year old male with past medical history of GERD presents with rhabdomyolysis. Patient has improving CK daily and will be continued on IVF. Patient also found to have abnormal echocardiogram and will undergo stress test today. Patient will undergo workup for etiology of cardiomyopathy. Patient will continue current medical regimen and fluids until significant decrease in CK. We will continue to monitor closely. [place]re, PGY-2 <Papa Pastor U - Last Filed: 06/30/17 13:38> Objective - Vital Signs/Intake and Output Vital Signs (last 24 hours): Temp Pulse Resp BP Pulse Ox 97.6 F 85 20 131/80 98 06/30/17 06:00 06/30/17 10:00 06/30/17 06:00 06/30/17 06:00 06/30/17 06:00 Intake and Output: 06/30/17 06/30/17 06:59 18:59 Intake Total 2820 Output Total 1550 Balance 1270 - Labs Labs: 06/30/17 05:30 06/30/17 05:30 PT 12.6 SECONDS (9.4-12.5) H 06/26/17 03:30 INR 1.10 (0.93-1.08) H 06/26/17 03:30 APTT 33.6 Seconds (25.1-36.5) 06/26/17 03:30 Attending/Attestation - Attestation I have personally seen and examined this patient.: Yes I have fully participated in the care of the patient.: Yes I have reviewed all pertinent clinical information, including history, physical exam and plan: Yes Notes (Text): Please see/read my dictated notes.
--- NOTE | 2017-06-28 13:17 | PN ---
DATE: 06/28/2017 SUBJECTIVE: The patient is seen sitting in chair. He feels significantly better. He is afebrile. His cough is improved. he is scheduled for a stress test this morning. CURRENT MEDICATIONS: Include aspirin, Cozaar 50 mg daily, subcutaneous heparin, metoprolol 25 mg b.i.d., Protonix, Tamiflu, and Zofran p.r.n. OBJECTIVE: GENERAL: He is a muscular young man. VITAL SIGNS: Blood pressure is 120/46 with pulse of 56 and sinus, respirations are 14. He is afebrile. HEENT: No JVD. CHEST: A few scattered rhonchi. HEART: PMI displaced laterally with no pathological gallops noted. ABDOMEN: Soft, nontender, positive bowel sounds. EXTREMITIES: No edema. DIAGNOSTIC DATA: Troponin is negative; however, CK is 1325, MB fraction is negative. White count 3.2, hemoglobin and hematocrit 16.7 and 48.7 with platelet count of 119,000. AST and ALT are elevated at 96 and 112. IMPRESSION: 1. Resolving rhabdomyolysis, clinically improved. 2. Apparent influenza, also clinically improved. 3. Leukopenia and thrombocytopenia, needs further evaluation. 4. Elevated transaminases, etiology uncertain. 5. [id number] reduced left ventricular systolic function with concentric left ventricular hypertrophy and recent chest pain, tentatively scheduled for stress test later today; possible bicuspid aortic valve. RECOMMENDATIONS: His current medications should continue for now. A screening stress test is scheduled for this morning. Further recommendations will be made based upon the review of those data. Avoidance of excessive exercise during afebrile illness was discussed with him. The need for control of hypertension that was discussed as well. We will be happy to follow along as needed. Didier Lopez MD
--- NOTE | 2017-06-28 15:17 | PN ---
DATE: 06/28/2017 HISTORY OF PRESENT ILLNESS: Patient was seen in stress lab. Patient was getting prepared for a stress test. Overnight nurses' notes were reviewed. Patient slept well without any adverse events documented. Patient denies any muscle aches, joint aches, joint pain. Denies any chest pain, denies any shortness of breath, denies any nausea, vomiting, diarrhea or constipation. REVIEW OF SYSTEMS: A 13-system review was done, pertinent positive, negative dictated above. PHYSICAL EXAMINATION VITAL SIGNS: T-max is last 24 hours 97.9. Telemetry shows normal sinus rhythm, sinus bradycardia. Blood pressure in the last 24 hours is 154/91, down to 139/98, 135/81, 125/86, 125/96, 132/82, 119/46, respirations 20, O2 sat 98%. Output yesterday was documented as only 500 mL and today 1200, which does not appear to be accurate because according to the patient, the patient has been urinating every hour in significant amount. HEENT: Head: Normocephalic, atraumatic. HEENT examination shows pinkish conjunctivae. Anicteric sclerae. No oropharyngeal lesion. No neck rigidity. CHEST: Kyphosis. LUNGS: Shows no rales, crackles or wheezing. CARDIOVASCULAR: S1, S2. Regular rhythm. Questionable soft systolic murmur in the left sternal border, right second intercostal space, left second intercostal space. ABDOMEN: Positive bowel sounds. No hepatosplenomegaly noted. No guarding. No rigidity. No rebound tenderness. No costovertebral angle tenderness. GENITALIA: Male. RECTAL: Deferred. EXTREMITIES: Shows no pitting edema, no calf tenderness, no Homans sign. All muscle groups were palpated, upper and lower extremity. Abdominal, back muscle examination was done, no muscle tenderness was noted. MUSCULOSKELETAL: Shows a body mass index of 33. NEUROLOGIC: Cranial nerves II through XII intact. Gait examination not tested. LABORATORY DATA: Diagnostic on 06/28, WBC 3.2, hemoglobin and hematocrit 16.7 and 48.7, platelets 119 and 125. Sodium 143, potassium 4.3, chloride 107, CO2 27, anion gap 14, BUN 13, creatinine 0.9, GFR greater than 60, glucose 93, calcium 9.3, magnesium 1.7. AST is 96, ALT is 112, CPK is 1325. Troponin is negative. IMPRESSION: 1. Severe symptomatic rhabdomyolysis with diffuse myalgia. 2. Hypertension and hypotension. 3. Tachycardia. 4. Episodic . 5. Possible viral syndrome is leukopenia and thrombocytopenia. 6. Elevated d-dimer. 7. Transaminitis. 8. Severe symptomatic rhabdomyolysis with elevated CPK. 9. Left lower lobe 6 mm pulmonary nodule. 10. Questionable monocytosis. 11. Dilated left ventricle with concentric left ventricular hypertrophy and mildly impaired left ventricular systolic function with ejection fraction of 40%. 12. Mild global left ventricular hypokinesis. 13. Possible bicuspid aortic valve. 14. Mild mitral regurgitation, trace tricuspid regurgitation. 15. Left ventricular hypertrophy. 16. Obesity with elevated body mass index. 1. Severe symptomatic rhabdomyolysis with elevated CPK. 2. High-grade fever of 103. 3. Resting tachycardia. 4. Hypertension. 5. Obesity with elevated body mass index of 33. 6 Leukopenia, thrombocytopenia. 7. Elevated D-dimer. 8. Transaminitis, etiology undetermined versus secondary to rhabdomyolysis. 9. Elevated LDL and decreased HDL. 10. Left ventricular hypertrophy. 11. Nonspecific ST-T changes. 12. Left ventricular ejection fraction of 37%-40%. 13. Mild concentric left ventricular hypertrophy with borderline dilated left ventricle with mildly impaired left ventricular systolic function. 14. Mild global left ventricular hypokinesis with left ventricle ejection fraction of 40%. 15. Bicuspid aortic valve. 16. Mild mitral regurgitation. 17. Trace tricuspid regurgitation. 18. Left lower lobe atelectasis. 19. Left lower lobe 6-mm pulmonary nodule. 20. Possible viral syndrome. 1. High-grade fever of 103. 2. Dizziness. 3. Severe myalgias. 4. Resting tachycardia. 5. Uncontrolled hypertension. 6. Morbid obesity with elevated body mass index of 33. 7. Multiple skin tattoos. 8. History of phlebotomy and erythrocytosis. 9. Hyperglycemia. 10. Transaminitis. 11. Severe symptomatic rhabdomyolysis with symptoms of myalgia and elevated CPK. 12. Indeterminate troponin. 13. Hypercholesterolemia with elevated LDL and decreased HDL. 14. History of erythrocytosis. 15. History of gastroesophageal reflux. 16. History of endoscopy. 17. History of protein supplement use. 18. Sinus tachycardia with left ventricular hypertrophy and questionable lateral ischemic changes. 19. Status post phlebotomy x2. 20. Questionable left axis deviation. 21. Questionable lateral coronary ischemic changes on the EKG. 22. Questionable rate related ischemic changes. PLAN: At this time, the patient has been ordered repeat serial labs. Patient has been ordered CBC, manual platelet. Current consultation Gastroenterology, Cardiology. Ecotrin 81 mg daily, Cozaar 50 mg daily, heparin 5000 subcutaneously q. 12, Lopressor 25 q. 12, decreased from q.8, Protonix 40 mg daily, IV fluid decreased to 0.9, normal saline at 150 mL an hour, Tamiflu 75 mg twice a day, Tylenol 650 q.4 p.r.n. for fever and pain, Zofran 4 mg IV q. 4, out of bed to chair, CHRISTOPH stock, and SCDs. Patient is in the process of getting a myocardial stress test. Patient has been updated about his condition, diagnosis, treatment plan, management plan at length and all question and concern answered. Patient's further management will be dependent upon the patient's clinical condition, hemodynamic status, and as per the patient's response to therapeutic intervention, as per the patient's diagnostic test results, and as per recommendation by Cardiology. Dictated and electronically signed, not read. Papa Pastor MD MTDD
--- NOTE | 2017-06-28 16:31 | CON ---
DATE: 06/28/2017 GASTROENTEROLOGY CONSULTATION REQUESTING PHYSICIAN: Papa Pastor MD HISTORY OF PRESENT ILLNESS: I have been asked to see this 36-year-old male, former spot welder body assembly, who comes to the hospital with a 1-day history of fever to 103, generalized myalgias, rhinorrhea. The patient states that despite the fever to 103, he went to the gym to workout and lifted weights. He denies any abdominal pain, nausea, vomiting, history of liver disease, drug or alcohol use. He does use protein supplements as part of his bodybuilding regimen. The patient became increasingly ill with fever and body aches and came to the hospital. Routine workup in the emergency room showed the patient to have elevated CPK as well as AST and ALT. Again, he denies any nausea, vomiting or abdominal pain. PAST MEDICAL HISTORY: Notable for gastroesophageal reflux disease. PAST SURGICAL HISTORY: Unremarkable. SOCIAL HISTORY: Denies cigarette smoking, alcohol use or drug use. He does use protein supplements as part of his bodybuilding regimen. The patient is a sales promotion officer, but states that at certain points during the year, he only lifts weights 2 to 3 times a week; most recently, he started lifting weights on an average of 6/7 days. FAMILY HISTORY: Noncontributory. REVIEW OF SYSTEMS: A 14-point review of systems is notable for fever, generalized body aches. MEDICATIONS: Include omeprazole for GERD. PHYSICAL EXAMINATION GENERAL: Muscular male, lying in bed, in no acute distress. VITAL SIGNS: Reveal temperature of 97.9, blood pressure 119/46, heart rate of 57. HEENT: Reveal sclerae to be white. Conjunctivae pink. NECK: Supple. CHEST: Reveals lungs to be clear. HEART: Reveals regular rate and rhythm. ABDOMEN: Soft, nontender. No hepatomegaly. No tenderness in the right upper quadrant. EXTREMITIES: Show no edema. He does have numerous tattoos on his torso and extremities. LABORATORY DATA: Reveal this morning AST 96, ALT 112. Yesterday, his AST was 117, ALT was 120. Alkaline phosphatase and total bilirubin have been normal. His CPK on the was 2855. Hepatitis A, B, C serology, HIV and influenza type A and B were all negative. PT 12.6, INR 1.10. CBC shows white blood cell count 3.2, hemoglobin 6.7, platelet count of 119,000. 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 The patient appears to have a viral syndrome. The elevated LFTs are multifactorial in etiology including the viral syndrome and rhabdomyolysis. His liver enzymes are trending down as his CPK peaked at 2855, this morning is 1325. Hepatitis serology again is negative, sed rate is only 4. RECOMMENDATIONS: 1. No other GI workup is planned at this time. I suspect that his liver enzymes will continue to trend down to normal. I have advised the patient to avoid protein supplements at this time. 2. Continue IV fluid hydration. 3. Follow transaminases. Eligio Rodriguez MD
--- NOTE | 2017-06-28 23:15 | CARD ---
APPROVED REPORT Protocol: MANFRED Test Type: Sestamibi Stress Test Attending Physician: Dr. Didier Lopez Referring Physician: Dr. Papa Pastor Test Indications: Chest Pain Height:6 ft 1 in Weight:247lbs Medications: Aspirin, Heparin, Cozaar, Lopressor tamiflu, protonix Medical History: 36 M, h/o HTN, recent abnormal ECG and chest pain, for NST. Target HR: 184 bpm Resting ECG: left ventricular hypertrophy Resting Heart Rate: 103 bpm Resting Blood Pressure: 140/90mmHg Submaximum (85%): 156 bpm POST EXERCISE Reason for Termination: Fatigue Target HR: No Max HR: 171 bpm 94% of Maximum Predicted HR: 184 bpm Exercise duration: 12:31 min:sec, 5 Stage Exercise capacity: 14.3METs Max Blood Pressure: 180/80mmHg Blood Pressure response to exercise: resting hypertension - appropriate response Heart Rate response to exercise: appropriate Chest Pain: Yes, Angina index: 0 Arrhythmia: Yes, ventricular premature beats-isolated ST Change: Yes, Depression downsloping Deviation: 0 mm TEST SUMMARY [id number]. EXERCISESTAGE [id number]/[id number]. EXERCISESTAGE [id number]. EXERCISESTAGE 303:[id number]/80.0. EXERCISESTAGE 403:[id number]/80.0. EXERCISESTAGE 500:[id number]/80.1. [id number]. INTERPRETATION Stress EKG Conclusion: No angina. Accentuation of resting ST-T abnormalities with exercise. Signed by Didier Lopez Electronically Approved: 06/28/2017 13:21:18 EXAM: Myocardial Perfusion REST/STRESS Stress Test Type: Exercise Treadmill Imaging Protocol Rest Spect myocardial perfusion imaging was performed in supine position 50 minutes following the injection of 10.9 mCi of Tc-99 Myoview. At peak stress, the patient was injected intravenously with 30.8mCi of Tc-99 tetrofosmin after an exercise time of 12 minutes and 31 seconds. Gated Stress Spect was performed 65 minutes after intravenous Tc-99 Myoview injection. The images were gated to evaluate regional wall motion and calculate ventricular ejection fraction.Images were reconstructed using backfilter projection method in short horizontal and verticle long axis. Spect slices were generated. LV Perfusion The quality of the study is good. The left ventricle is moderately enlarged in size with thickened myocardium. The right ventricle is slightly prominent. The lung uptake is within normal limits. The distribution of tracer reveals normal uptake pattern in the LV myocrdium on the stress study. The rest myocardial perfusion study shows no significant change. Wall Motion Wall motion study shows diffuse hypokinesis of the left ventricle. LVEF = 34%. Conclusion 1. Abnormal SPECT myocardial perfusion study. 2. There is no discrete perfusion abnormality in the LV myocardium. 3. Mioderate LV dysfunction with diffuse hypokinesis. 4. The above findings are suggestive of cardiomyopathy.
[2017-06-29] MEDS: Pantoprazole 40 mg EC Tab PO SCH (05:58)
[2017-06-29 06:49] LABS: BASO # 0.02 K/mm3 (0.0-2.0); BASO % 0.6 % (0.0-3.0); EOS # 0.2 (0.0-0.7); EOS % 6.7 % (1.5-5.0); GRAN # 1.6 (1.4-6.5); GRAN % 44.7 % (50.0-68.0); HEMOGLOBIN 16.8 g/dL (14.0-18.0); LYMPH # 1.4 (1.2-3.4); LYMPH % 38.8 % (22.0-35.0); MEAN CELL VOLUME 87.7 fl (80.0-105.0); MEAN CORPUSCULAR HEMOGLOBIN 30.4 pg (25.0-35.0); MEAN CORPUSCULAR HGB CONC 34.6 g/dl (31.0-37.0); MONO # 0.3 (0.1-0.6); MONO % 9.2 % (1.0-6.0); RBC 5.53 10^6/uL (3.5-6.1); RED CELL DISTRIBUTION WIDTH 13.3 % (11.5-14.5); WHITE BLOOD COUNT 3.6 10^3/ul (4.5-11.0)
[2017-06-29 07:09] LABS: ALB/GLOB RATIO 1.4 (1.1-1.8); ALT/SGPT 102 U/L (7-56); AST/SGOT 77 U/L (17-59); BILIRUBIN,DIRECT 0.4 mg/dL (0.0-0.4); BLOOD UREA NITROGEN 14 mg/dL (7-21); CALCIUM 9.5 mg/dL (8.4-10.5); GFR AFRICAN-AMERICAN > 60; GFR NON-AFRICAN AMERICAN > 60; MAGNESIUM 1.7 mg/dL (1.7-2.2)
[2017-06-29 07:14] LABS: TROPONIN I 0.02 ng/mL
[2017-06-29 07:32] LABS: CK-MB 1.6 ng/mL (0.0-3.6)
--- NOTE | 2017-06-29 08:40 | CP.PCM.PN ---
Subjective - Date & Time of Evaluation Date of Evaluation: 06/29/17 Time of Evaluation: 07:00 - Subjective Subjective: Stable on 2R. No CP or SOB. He feels better. V/S noted. RSR PE: Lungs: clear Cor.: S1S2 Abd.: soft Ext.: no edema Neuro.: alert ECG: RSR, markedly improved repolarization abnormality c/w ECG yesterday Echo: Borderline LVE with mild global hypokinesis, EF ~40% Labs noted. WBC 3600, Pl Ct= 120,000 CTA Chest noted. No PE. + 6 mm pulm nodule Nuclear stress test noted: abn study c/w CMP with mod. diffuse HK and LV EF 34% Objective - Vital Signs/Intake and Output Vital Signs (last 24 hours): Temp Pulse Resp BP Pulse Ox 97.9 F 78 20 132/99 H 99 06/29/17 06:00 06/29/17 06:00 06/29/17 06:00 06/29/17 06:00 06/29/17 06:00 Intake and Output: 06/29/17 06/29/17 06:59 18:59 Intake Total 2640 Output Total 1900 Balance 740 - Medications Medications: Current Medications Acetaminophen (Tylenol 325mg Tab) 650 mg PO Q4H PRN PRN Reason: Pain, Mild (1-3) Aspirin (Aspirin Chewable) 81 mg PO DAILY [facility] Last Admin: 06/28/17 09:43 Dose: Not Given Carvedilol (Coreg) 3.125 mg PO BID [facility] Heparin Sodium (Porcine) (Heparin) 5,000 units SC Q12 AFTAB PRN Reason: Protocol Last Admin: 06/28/17 22:23 Dose: 5,000 units Sodium Chloride (Sodium Chloride 0.9%) 1,000 mls @ 125 mls/hr IV .Q8H [facility] Stop: 07/02/17 15:29 Losartan Potassium (Cozaar) 50 mg PO DAILY [facility] Last Admin: 06/28/17 09:43 Dose: Not Given Ondansetron HCl (Zofran Inj) 4 mg IVP Q4H PRN PRN Reason: Nausea/Vomiting Oseltamivir Phosphate (Tamiflu Cap) 75 mg PO BID [facility] PRN Reason: Protocol Stop: 07/01/17 06:38 Last Admin: 06/28/17 17:32 Dose: 75 mg Pantoprazole Sodium (Protonix Ec Tab) 40 mg PO 0600 AFTAB Last Admin: 06/29/17 05:58 Dose: 40 mg - Labs Labs: 06/29/17 06:30 06/29/17 06:30 PT 12.6 SECONDS (9.4-12.5) H 06/26/17 03:30 INR 1.10 (0.93-1.08) H 06/26/17 03:30 APTT 33.6 Seconds (25.1-36.5) 06/26/17 03:30 Assessment and Plan - Assessment and Plan (Free Text) Assessment: Dizziness, Fever, myalgias, tachycardia, possible viral syndrome Abn ECG, echo and nuclear stress test c/w CMP, LV EF 34% Rhabdomyolysis Bicuspid AV valve by echo Pulm. nodule on CT Abn. LFTs PCV s/p phlebotomies Plan: Cardiac findings d/w pt this AM. As per Dr. Pastor and medical team. Rec cardiac cath/cor angios. He prefers to go home and schedule procedure as out pt. I will arrange this for next week. Switch metprolol to carvedilol 3.125 BID. Titrate as out pt. No exercise until cath done No protein supplements He will need f/u EF in 2 - 3 months. If low EF persists > EP Eval and possible ICD to be considered. Heme eval and F/U for erythrocytosis and leukopenia and thrombocytopenia.
[2017-06-29] MEDS: Sodium Chloride 0.9% 1,000 ML IV SCH ×4 (10:14→16:31)
--- NOTE | 2017-06-29 10:40 | PN ---
DATE: 06/29/2017 SUBJECTIVE: Patient is lying in bed, comfortable. He denies any abdominal pain, nausea, or vomiting. Patient underwent a thallium stress test, which showed no perfusion abnormality in the LV; however, the patient was noted to have moderate left ventricular dysfunction with diffuse hypokinesis and a left ventricular ejection fraction of 34%. PHYSICAL EXAMINATION: VITAL SIGNS: Reveal temperature of 97.9, blood pressure 132/99, heart rate 78. HEENT: Reveal sclerae to be white. Conjunctivae pink. NECK: Supple. CHEST: Lungs are clear. HEART: Reveals regular rate and rhythm. ABDOMEN: Soft, nontender. No mass. EXTREMITIES: Show no edema. LABORATORY DATA: Reveal white blood cell count 3.6, hemoglobin 16.8. Chemistries reveal AST down to 77, ALT 102, alkaline phosphatase of 48. CPK is down to 833. IMPRESSION: 1. Elevated liver enzymes, multifactorial in etiology with causes including a viral syndrome as well as rhabdomyolysis. His liver enzymes are trending downward as is his CPK. 2. Probable cardiomyopathy with global left ventricular dyskinesia and ejection fraction of 34% on myocardial stress test. RECOMMENDATIONS: Patient is to have a cardiac catheterization this morning. He is stable from a GI standpoint. No further workup for elevated liver enzymes is planned at this time. Eligio Rodriguez MD
--- NOTE | 2017-06-29 23:09 | PN ---
DATE: 06/29/2017 SUBJECTIVE: The patient is seen in room 267, bed 2. The patient is out of bed to chair. The patient is ambulating without assistance. Overnight nurse's notes were reviewed. The patient is alert, awake, oriented x3. Telemetry monitoring shows sinus rhythm, sinus bradycardia. PHYSICAL EXAMINATION: VITAL SIGNS: T-max 97.9, 97.8. Telemetry shows sinus rhythm, heart rate of 75, 78, 99, 87, respirations 20, blood pressure in the last 24 hours 147/83, 132/99, 145/98, 142/76, O2 sat is 96-98%. HEENT: Head examination, normocephalic, atraumatic. HEENT examination shows pink conjunctivae. Anicteric sclerae. No oropharyngeal lesion. NECK: No neck rigidity. CHEST: Kyphosis. LUNGS: Show no rales, crackles or wheezing. CARDIOVASCULAR: S1, S2, regular rhythm. Questionable soft systolic murmur, left sternal border, right second intercostal space, left second intercostal space. ABDOMEN: Soft. Positive bowel sounds. GENITALIA: Male. RECTAL: Deferred. EXTREMITIES: Show no pitting edema, no calf tenderness, no Homans' signs. NEUROLOGIC: The patient is alert, awake, oriented x3. Cranial nerves II-XII intact. MUSCULOSKELETAL: Shows a body mass index of 32.1. VASCULAR: Palpable pulses. DIAGNOSTICS: 06/29, WBC 3.6, hemoglobin/hematocrit 16.8/48.5, platelets 120. Sodium 144, potassium 3.9, chloride is 105, CO2 of 28, anion gap 15, BUN 14, creatinine 1.0, GFR greater than 60, glucose 100, calcium 9.5, magnesium 1.7, AST 77, ALT 102, CPK 833. The patient is seen by utility worker woolen mill, their recommendations noted. The patient seen by milliner helper, their recommendations noted. Stress test was reviewed. STRESS TEST: Myocardial perfusion stress test noted, which shows moderately dilated left ventricle with thickened myocardium, prominent right ventricle. Diffuse LV hypokinesis. Left ventricular ejection fraction 34%, suggestive of cardiomyopathy. IMPRESSION AND PLAN: 1. Cardiomyopathy, etiology indeterminate with left ventricular ejection fraction of 34%. 2. Severe symptomatic rhabdomyolysis. 3. Bicuspid aortic valve. 4. Transaminitis. 5. History of erythrocytosis with history of phlebotomies. 6. Hypertension. 7. Tachycardia. 8. Status post high-grade fever. 9. Possible viral syndrome with leukopenia, thrombocytopenia and monocytosis and slight eosinophilia. 10. Elevated D-dimer. 11. Hypercholesteremia with elevated LDL and decreased HDL. 12. Severe symptomatic rhabdomyolysis, probably secondary to protein supplementation use. 13. History of protein supplementation and questionable history of steroid use in the past. 14. Morbid obesity with elevated body mass index of 32. 15. Abnormal myocardial perfusion study with dilated left ventricle, thickened myocardium and prominent right ventricle. 16. Diffuse hypokinesis with left ventricular ejection fraction of 34%. 17. Monocytosis. 18. Hypertensive cardiovascular disease. 19. Viral syndrome. 20. Left lower lobe atelectasis. 21. Left lower lobe noncalcified nodule, 6 mm. 22. A 6-mm left lower lobe pulmonary nodule. 23. Questionable left axis deviation with hypertensive cardiovascular disease. 1. Severe symptomatic rhabdomyolysis with diffuse myalgia. 2. Hypertension and hypotension. 3. Tachycardia. 4. Episodic . 5. Possible viral syndrome is leukopenia and thrombocytopenia. 6. Elevated d-dimer. 7. Transaminitis. 8. Severe symptomatic rhabdomyolysis with elevated CPK. 9. Left lower lobe 6 mm pulmonary nodule. 10. Questionable monocytosis. 11. Dilated left ventricle with concentric left ventricular hypertrophy and mildly impaired left ventricular systolic function with ejection fraction of 40%. 12. Mild global left ventricular hypokinesis. 13. Possible bicuspid aortic valve. 14. Mild mitral regurgitation, trace tricuspid regurgitation. 15. Left ventricular hypertrophy. 16. Obesity with elevated body mass index. 1. Severe symptomatic rhabdomyolysis with elevated CPK. 2. High-grade fever of 103. 3. Resting tachycardia. 4. Hypertension. 5. Obesity with elevated body mass index of 33. 6 Leukopenia, thrombocytopenia. 7. Elevated D-dimer. 8. Transaminitis, etiology undetermined versus secondary to rhabdomyolysis. 9. Elevated LDL and decreased HDL. 10. Left ventricular hypertrophy. 11. Nonspecific ST-T changes. 12. Left ventricular ejection fraction of 37%-40%. 13. Mild concentric left ventricular hypertrophy with borderline dilated left ventricle with mildly impaired left ventricular systolic function. 14. Mild global left ventricular hypokinesis with left ventricle ejection fraction of 40%. 15. Bicuspid aortic valve. 16. Mild mitral regurgitation. 17. Trace tricuspid regurgitation. 18. Left lower lobe atelectasis. 19. Left lower lobe 6-mm pulmonary nodule. 20. Possible viral syndrome. 1. High-grade fever of 103. 2. Dizziness. 3. Severe myalgias. 4. Resting tachycardia. 5. Uncontrolled hypertension. 6. Morbid obesity with elevated body mass index of 33. 7. Multiple skin tattoos. 8. History of phlebotomy and erythrocytosis. 9. Hyperglycemia. 10. Transaminitis. 11. Severe symptomatic rhabdomyolysis with symptoms of myalgia and elevated CPK. 12. Indeterminate troponin. 13. Hypercholesterolemia with elevated LDL and decreased HDL. 14. History of erythrocytosis. 15. History of gastroesophageal reflux. 16. History of endoscopy. 17. History of protein supplement use. 18. Sinus tachycardia with left ventricular hypertrophy and questionable lateral ischemic changes. 19. Status post phlebotomy x2. 20. Questionable left axis deviation. 21. Questionable lateral coronary ischemic changes on the EKG. 22. Questionable rate related ischemic changes. Plan at this time, the patient seen by utility worker woolen mill. Their recommendation is cardiac catheterization and coronary angiograms to be scheduled as an outpatient early next week. Change metoprolol to Coreg 3.125 twice a day, titrate as an outpatient. The patient was advised no exercise until cardiac catheterization done and the patient was advised no protein supplement. The patient was also advised to follow up with echocardiogram, ejection fraction in 2-3 months and if the patient's ejection fraction does not improve, the patient will require electrophysiology evaluation and possible AICD implant, which the patient was explained in length by me and the utility worker woolen mill. The patient has been ordered serial labs. The patient has been ordered repeat CPK. The patient has been ordered LFTs, magnesium. Repeat CBC, manual platelet ordered. CURRENT MEDICATIONS: Aspirin 81 mg daily, Coreg 3.125 twice a day, Cozaar 50 mg daily, heparin 5000 subcu q.12, Protonix 40 mg daily, IV fluids decreased to 0.9 normal saline at 125 mL an hour, Tamiflu 75 mg twice a day, Zofran 4 mg IV q.4. The patient has been ordered out of bed ad nneka, ambulation. The patient updated about his condition. The patient was extensively explained about the test results, reinforced Cardiology recommendation. The patient was counseled about cessation of use of protein supplements and steroid use. All of the above patient acknowledged and understood. All questions and concerns answered. Dictated and electronically signed, not read. Papa Pastor MD MIHAI
[2017-06-30] MEDS: Sodium Chloride 0.9% 1,000 ML IV SCH ×2 (00:51→08:21)
[2017-06-30] MEDS: Pantoprazole 40 mg EC Tab PO SCH (06:02)
[2017-06-30 06:23] LABS: EOS # 0.3 (0.0-0.7); EOS % 7.1 % (1.5-5.0); GRAN # 1.49 (1.4-6.5); HEMOGLOBIN 17.2 g/dL (14.0-18.0); LYMPH # 1.5 (1.2-3.4); LYMPH % 40.1 % (22.0-35.0); MEAN CELL VOLUME 87.6 fl (80.0-105.0); MEAN CORPUSCULAR HEMOGLOBIN 30.6 pg (25.0-35.0); MEAN CORPUSCULAR HGB CONC 34.9 g/dl (31.0-37.0); MEAN PLATELET VOLUME 11.4 fl (7.0-11.0); MONO # 0.4 (0.1-0.6); MONO % 11.8 % (1.0-6.0); RBC 5.63 10^6/uL (3.5-6.1); RED CELL DISTRIBUTION WIDTH 13.2 % (11.5-14.5); WHITE BLOOD COUNT 3.6 10^3/ul (4.5-11.0)
[2017-06-30 06:37] LABS: ALB/GLOB RATIO 1.3 (1.1-1.8); ALT/SGPT 112 U/L (7-56); AST/SGOT 65 U/L (17-59); BILIRUBIN,DIRECT 0.3 mg/dL (0.0-0.4); BLOOD UREA NITROGEN 15 mg/dL (7-21); CALCIUM 9.6 mg/dL (8.4-10.5); GFR AFRICAN-AMERICAN > 60; GFR NON-AFRICAN AMERICAN > 60; MAGNESIUM 1.8 mg/dL (1.7-2.2)
[2017-06-30 06:48] LABS: TROPONIN I 0.02 ng/mL
[2017-06-30 07:03] LABS: CK-MB 1.3 ng/mL (0.0-3.6)
[2017-06-30 07:14] VITALS: BP 131/80; RESP 20; TEMP 97.6; O2SAT 98
[2017-06-30 12:09] VITALS: PULSE 85
--- NOTE | 2017-06-30 19:15 | CP.PCM.PN ---
Subjective - Date & Time of Evaluation Date of Evaluation: 06/30/17 Time of Evaluation: 10:00 - Subjective Subjective: This is a covering for Dr. Rodriguez. Seen and examined at the bedside earlier today, chart review. Patient denies nausea, vomiting, or abdominal pain. Having formed BMs, no reports of overt GI bleed. Tolerating oral intake. Objective - Vital Signs/Intake and Output Vital Signs (last 24 hours): Temp Pulse Resp BP Pulse Ox 97.6 F 85 20 131/80 98 06/30/17 06:00 06/30/17 10:00 06/30/17 06:00 06/30/17 06:00 06/30/17 06:00 Intake and Output: 06/30/17 06/30/17 06:59 18:59 Intake Total 2820 Output Total 1550 Balance 1270 - Labs Labs: 06/30/17 05:30 06/30/17 05:30 PT 12.6 SECONDS (9.4-12.5) H 06/26/17 03:30 INR 1.10 (0.93-1.08) H 06/26/17 03:30 APTT 33.6 Seconds (25.1-36.5) 06/26/17 03:30 - Constitutional Appears: No Acute Distress - Eye Exam Eye Exam: Normal appearance. absent: Scleral icterus - ENT Exam ENT Exam: Mucous Membranes Moist - Neck Exam Neck Exam: Normal Inspection - Respiratory Exam Respiratory Exam: Clear to Ausculation Bilateral, NORMAL BREATHING PATTERN. absent: Respiratory Distress - Cardiovascular Exam Cardiovascular Exam: +S1, +S2 - GI/Abdominal Exam GI & Abdominal Exam: Soft, Normal Bowel Sounds. absent: Guarding, Tenderness, Organomegaly, Rebound - Extremities Exam Extremities Exam: absent: Calf Tenderness, Pedal Edema - Neurological Exam Neurological Exam: Alert, Awake, Oriented x3 - Skin Skin Exam: Dry, Warm Assessment and Plan - Assessment and Plan (Free Text) Assessment: Assessment: Elevated LFTs, multifactorial, status post rhabdomyolysis, CPK trending down Viral syndrome Status post stress test, probable cardiomyopathy with global left ventricular dyskinesia, ejection fraction 34% plan: Continue to trend LFTs diet as tolerated Avoid hepatotoxic medications Patient plan for discharge today Discussed with Dr. Thomas covering Dr. Rodriguez.
--- NOTE | 2017-07-01 01:42 | DS ---
FINAL PROGRESS NOTE AND DISCHARGE SUMMARY LOCATION: The patient is seen in room #267, bed 2. HISTORY OF PRESENT ILLNESS: The patient is seen sitting up in the bed. PHYSICAL EXAMINATION: VITAL SIGNS: T-max is 97.6. Telemetry shows sinus rhythm, heart rate 58, 62, and 77; blood pressure 131/80, 126/77; respirations 18; O2 saturation 98-99%. HEENT: Head: Normocephalic, atraumatic. [place] conjunctivae, anicteric sclerae. No oropharyngeal lesion. NECK: No neck rigidity. CHEST: Symmetrical. LUNGS: Shows no rales, crackles, or wheezing. CARDIOVASCULAR: S1, S2, regular rhythm. A questionable soft, systolic murmur along the left sternal border in the left second intercostal space and right second intercostal space. ABDOMEN: Soft. Positive bowel sounds. GENITALIA: Male. RECTAL: Deferred. EXTREMITIES: Shows no pitting edema, no calf tenderness, and no Homans signs. NEUROLOGIC: The patient is alert, awake, and oriented x3. Cranial nerves II-XII are intact. Gait examination is independent. VASCULAR: Palpable pulses. Plantars are downward. MUSCULOSKELETAL: Shows a body mass index of 32. DIAGNOSTIC DATA: On 06/30/2017, WBC , hemoglobin and hematocrit 17.2 and 49.3, and platelets 134 and 202. Sodium 143, potassium 4.4, chloride 104, CO2 of 28, anion gap 16, BUN 15, creatinine 0.9, GFR greater than 60, glucose 93, calcium 9.6, magnesium 1.8. AST 65, ALT 112, CPK is down to 364, troponin is negative, and LFTs are normal. IMPRESSION: 1. Severe symptomatic rhabdomyolysis. 2. High-grade fever. 3. Severe myalgias. 4. Obesity with elevated body mass index. 5. Sinus tachycardia and sinus bradycardia. 6. Hypertension. 7. Leukopenia. 8. Transient thrombocytopenia. 9. Mild lymphocytosis. 10. Monocytosis and eosinophilia. 11. Transaminitis. 12. Rhabdomyolysis with elevated CPK. 13. Hypercholesterolemia with elevated LDL and decreased HDL. 14. The patient's Joseph-Pal virus serologies are suggestive of past infection. Cytomegalic virus is negative. 15. Moderately enlarged left ventricle with thickened myocardium with prominent right ventricle. 16. Cardiomyopathy with diffuse left ventricle hypokinesis and left ventricular dysfunction with a left ventricular ejection fraction of 34%. 17. Left lower lobe 6-mm pulmonary nodule. 18. Concentric left ventricular hypertrophy. 19. Mild mitral regurgitation. 20. Trace tricuspid regurgitation. 21. Left ventricular global hypokinesis. 22. Possible bicuspid aortic valve. PLAN: At this time, the patient is to be cleared by Cardiology for discharge. The patient is to be discharged with followup with Dr. Lopez within one week and Dr. Pastor within one week. DISCHARGE MEDICATIONS: 1. Aspirin 81 mg p.o. daily. 2. Coreg 3.125 mg twice a day. 3. Nexium, patient is to resume 20 mg daily. 4. Cozaar 50 mg daily. 5. Tamiflu 75 mg b.i.d. for another 2 days. 6. Protonix or Nexium daily. During this hospitalization, the patient was extensively explained about the details of his medical condition, diagnostic test results, and recommendation by all the physicians involved in the care of the patient. The patient was advised to follow up with Dr. Pastor and Dr. Lopez within one week. Discharge medications and prescriptions were given to the patient upon discharge. The patient was advised to stop all protein supplements, [id number] medications, and vitamins. All the medical details, recommendations, and test results were reinforced to the patient upon discharge. Time spent in the entire discharge process is more than 45 minutes. Dictated and electronically signed, not read. Papa Pastor MD
== END 2017-06-30 12:14 | disposition home or self-care (01) | DRG 558 ==
LOC: ED 02:46 → ERH 05:47 → 2RNO 06-27 02:29
PROVIDERS: ADMIT Internal Medicine; ATTEND Internal Medicine
DX: M62.82 Rhabdomyolysis (principal); D69.6 Thrombocytopenia, unspecified; D72.1 Eosinophilia; I42.9 Cardiomyopathy, unspecified; E66.01 Morbid (severe) obesity due to excess calories; R65.10 Systemic inflammatory response syndrome (SIRS) of non-infectious origin without acute organ dysfunction; D75.1 Secondary polycythemia; J98.11 Atelectasis; Q23.1 Congenital insufficiency of aortic valve; D72.819 Decreased white blood cell count, unspecified; E78.00 Pure hypercholesterolemia, unspecified; J11.1 Influenza due to unidentified influenza virus with other respiratory manifestations; I34.0 Nonrheumatic mitral (valve) insufficiency; I11.9 Hypertensive heart disease without heart failure; G24.9 Dystonia, unspecified; K21.9 Gastro-esophageal reflux disease without esophagitis; R79.1 Abnormal coagulation profile; Z68.33 Body mass index [BMI] 33.0-33.9, adult; R40.2412 Glasgow coma scale score 13-15, at arrival to emergency department; R00.0 Tachycardia, unspecified; R73.9 Hyperglycemia, unspecified; R74.0 Nonspecific elevation of levels of transaminase and lactic acid dehydrogenase [LDH]; I07.1 Rheumatic tricuspid insufficiency; R91.1 Solitary pulmonary nodule

== ENCOUNTER 2017-07-05 08:11 | Day surgery (SDC) | payer BC ==
[2017-07-05 08:49] VITALS: RESP 18
[2017-07-05] MEDS ORDERED: Lidocaine 2% Inj (20ml) ONE (09:48)
[2017-07-05] MEDS ORDERED: HEPARIN SODIUM/NS 2,000 ML IV ONE (09:48)
[2017-07-05] MEDS ORDERED: Iodixanol 320 MG/ML 200 ML BOTTLE IV ONE (09:51)
[2017-07-05] MEDS ORDERED: Iohexol 350mgl/ml 50 ML ONE (09:51)
[2017-07-05] MEDS ORDERED: Iodixanol 320 MG/ML 100 ML BOTTLE IV ONE (09:51)
[2017-07-05] MEDS ORDERED: Nitroglycerin 50mg in D5W 0 MG/0 ML BOTTLE IV ONE (09:52)
[2017-07-05] MEDS ORDERED: Midazolam 2 MG/2 ML VIAL ONE ×2 (10:18→10:33)
[2017-07-05] MEDS ORDERED: Sodium Chloride 0.9% 1,000 ML IV SCH (11:15)
[2017-07-05 11:40] VITALS: TEMP 98.3
[2017-07-05 15:06] VITALS: BP 132/70; PULSE 76
[2017-07-05 15:07] VITALS: O2SAT 96
--- NOTE | 2017-07-06 07:51 | CARDCATH ---
PROCEDURE DATE: 07/05/2017 PROCEDURES: 1. Right and left heart catheterization. 2. Selective left and right coronary angiography. 3. Right femoral arteriography. 4. AngioSeal deployment. HISTORY: This is a 36-year-old man, recently admitted with flu-like symptoms. He was noted to have an elevated cardiac enzymes as well as chest pain. A stress test showed evidence of global LV dysfunction with an overall ejection fraction of 34%. Given his age, cardiac catheter was recommended. INDICATION: LV dysfunction. FINDINGS: HEMODYNAMICS: The right heart pressures were as follows: The RA pressure was 2. The RV pressure was 28/2. The PA pressure was 28/5, with a pulmonary capillary wedge pressure of 7. The cardiac output was 8.2 liters per minute with a cardiac index of 3.5 liters per minute per meter square. CORONARY ANATOMY: 1. Left mainstem was normal. 2. Left anterior descending artery had mild ectasia proximally with no evidence of obstructive disease in the vessel or its branches. 3. Left circumflex artery was of moderate size and normal. 4. The right coronary artery was large, dominant, and normal. LEFT VENTRICULOGRAPHY: A left ventriculogram was performed in the ABBOTT projection with power injection. This revealed evidence of mild diffuse hypokinesis and overall ejection fraction of 45%. Significant ectopy was noted during the ventriculogram. There was no aortic valve gradient noted on catheter pullback. There was no evidence of mitral regurgitation. RIGHT FEMORAL ARTERIOGRAPHY: A right femoral arteriogram was performed in the ABBOTT projection. This revealed no evidence of significant disease and appropriate level for arterial puncture. The puncture site was then closed with deployment of an AngioSeal device. CONCLUSION: 1. Normal coronary arteries. 2. Mildly reduced left ventricular systolic function. RECOMMENDATIONS: Given the above findings, continue the therapy with beta solitario and angiotensin receptor solitario therapy as advised. Avoidance of cardiotoxic agents is recommended. Avoidance of heavy weight lifting also is recommended. Outpatient monitoring of his LV function will be planned. Didier Lopez MD cc: MIHAI
== END 2017-07-05 15:20 | disposition home or self-care (01) ==
LOC: CATH 08:11
PROVIDERS: ATTEND Internal Medicine Cardiovascular Disease
DX: R07.9 Chest pain, unspecified (principal); R74.8 Abnormal levels of other serum enzymes
CPT/HCPCS: 36415; 86850; 86900; 93460; 99152; C1760; C1769; C1894; C2629; J1644; J2250; J3010; J7040; Q9967